=== PATIENT | male | born 1950 | race African-American/Black ===

== ENCOUNTER 2024-01-22 10:56 | Emergency (ER) | payer MEDICAID, OTHER ==
[~2024-01-22] VITALS: Ht 180.3 cm; Wt 113.0 kg
--- NOTE | 2024-01-22 11:43 | ED.PDOC ---
History of Present Illness HPI Comments 73-year-old male patient presents to the emergency room for medication refills. Patient was recently released from [facility] and does not have his medication. Patient was requesting refills of amlodipine, atorvastatin, Ultram and Lasix. Patient is normotensive in the emergency room today. Patient denies chest pain, headache, blurred vision or dizziness. Chief Complaint: High Blood Pressure Time Seen by MD: 11:30 Allergies: Coded Allergies: NO KNOWN ALLERGIES (Unverified , 01/22/24) Home Meds Active Scripts Furosemide (Lasix) 20 Mg Tb, 1 TAB PO DAILY PRN for 30 Days, #30 TAB 1 Refill Prov:[facility] 01/22/24 Celecoxib (Celebrex) 100 Mg Cap, 100 MG PO QHSP PRN for 30 Days, #30 CAP 0 Refills Prov:[facility] 01/22/24 Ibuprofen Micronized (Ibuprofen) 600 Mg Tab, 600 MG PO TID PRN for 30 Days, #90 TAB 0 Refills Prov:[facility] 01/22/24 Baclofen (Baclofen) 20 Mg Tab, 20 MG PO BID for 30 Days, #60 TAB 0 Refills Prov:[facility] 01/22/24 Atorvastatin Calcium (ATORVASTATIN CALCIUM) 80 Mg Tab, 80 MG PO DAILY for 30 Days, #30 TAB 0 Refills Prov:[facility] 01/22/24 Amlodipine Besylate (Amlodipine Besylate) 10 Mg Tab, 10 MG PO DAILY for 30 Days, #30 TAB 0 Refills Prov:[facility] 01/22/24 Mode of Arrival: Wheelchair Constitutional: denies: chills, diaphoresis, fatigue, fever, malaise, sweats, weakness, others EENTM: denies: blurred vision, double vision, ear bleeding, ear discharge, ear drainage, ear pain, ear ringing, eye pain, eye redness, hearing loss, mouth pain, mouth swelling, nasal discharge, nose bleeding, nose congestion, nose pain, photophobia, tearing, throat pain, throat swelling, voice changes, others Respiratory: denies: cough, hemoptysis, orthopnea, SOB at rest, shortness of breath, SOB with excertion, stridor, wheezing, others Cardiovascular: denies: chest pain, dizzy spells, diaphoresis, Dyspnea on exertion, edema, irregular heart beat, left arm pain, lightheadedness, palpitations, PND, syncope, others Gastrointestinal: denies: abdomen distended, abdominal pain, blood streaked bowels, constipated, diarrhea, dysphagia, difficulty swallowing, hematemesis, melena, nausea, poor appetite, poor fluid intake, rectal bleeding, rectal pain, vomiting, others Genitourinary: denies: burning, dysuria, flank pain, frequency, hematuria, incontinence, penile discharge, penile sore, pain, testicle pain, testicle swelling, urgency, others Neurological: denies: dizziness, fainting, headache, left sided numbness, left sided weakness, numbness, paresthesia, pre-existing deficit, right sided numbness, right sided weakness, seizure, speech problems, tingling, tremors, weakness, others Musculoskeletal: denies: back pain, gout, joint pain, joint swelling, muscle pain, muscle stiffness, neck pain, others Integumetry: denies: bruises, change in color, change in hair/nails, dryness, laceration, lesions, lumps, rash, wounds, others Allergic/Immunocompromised: denies: Difficulty Healing, Frequent Infections, Hives, Itching, others Hematologic/Lymphatic: denies: anemia, blood clots, easy bleeding, easy bruising, swollen glands, others Endocrine: denies: excessive hunger, excessive sweating, excessive thirst, excessive urination, flushing, intolerance to cold, intolerance to heat, unexplained weight gain, unexplained weight loss, others Psychiatric: denies: anxiety, bipolar disorder, depression, hopeless, panic disorder, schizophrenia, sleepless, suicidal, others Physical Exam General Appearance: No Apparent Distress, Normal HEENT: Normal ENT Inspection, Pharynx Normal, TMs Normal Neck: Full Range of Motion, Non-Tender, Normal, Normal Inspection Respiratory: Chest Non-Tender, Lungs Clear, No Accessory Muscle Use, No Respiratory Distress, Normal Breath Sounds Cardiovascular: No Edema, No JVD, No Murmur, No Gallop, Normal Peripheral Pulses, Regular Rate/Rhythm Breast Exam: Deferred Gastrointestinal: No Organomegaly, Non Tender, No Pulsatile Mass, Normal Bowel Sounds, Soft Genitalia: Deferred Pelvic: Deferred Rectal: Deferred Extremities: No calf tenderness, Normal capillary refill, Normal inspection, Normal range of motion, Non-tender, No pedal edema Musculoskeletal : Apperance: Normal Neurologic: Alert, turn machine operator II-XII nml as Tested, No Motor Deficits, Normal Affect, Normal Mood, No Sensory Deficits Cerebellar Function: Normal Reflexes: Normal Skin: Dry, Normal Color, Warm Lymphatic: No Adenopathy Was a procedure done? Was a procedure done?: No Differential Dx Considerations may include: Medication refills X-Ray, Labs, Meds, VS Vital Signs Date Time Temp Pulse Resp B/P (MAP) Pulse Ox O2 Delivery O2 Flow Rate FiO2 01/22/24 12:35 90 16 98 Room Air* 0 21 01/22/24 12:34 97.7 90 16 113/78 (90) 98 97.7 01/22/24 11:31 97.6 91 18 114/65 (81) 97 X-Ray, Labs, Meds, VS Comment Patient advised to follow up with the [facility] to obtain health insurance. Patient currently working. Patient reports that he has not seek medical care since his discharge from [facility] 1 month ago. Patient reports that he was in [facility] for 25 years. Patient and son brought in all medication bottles that needed refills. Patient advised to follow up with a [facility] to establish care. On re-evaluation patient has symptomatic improvement. Patient is stable for discharge at this time. All test results and diagnostic imaging have been interpreted. All diagnostic findings, discharge care, and education instruction provided to the patient. Follow-up with PCP in 2-3 days Patient verbalized understanding, discharge instructions and agrees to treatment plan Vital signs are stable Patient is ambulatory Patient advised of which symptoms necessitate a return visit to the emergency room. Patient to return emergency room for any new worsening symptoms. Patient is aware that the purpose of this visit is for an acute medical emergency requiring emergent stabilization. Chronic conditions, including malignancies have not been ruled out. Patient is instructed to follow up with PCP as directed for continued care and workup. If unable to arrange follow up, patient is to return to the emergency room for reassessment. Patient was given verbal and written discharge instructions and acknowledges understanding Time of 1ST Reevaluation: 11:00 Reevaluation 1ST: Unchanged Patient Education/Counseling: Diagnosis, Treatment, Prognosis Family Education/Counseling: Diagnosis, Treatment, Prognosis Departure 1 Departure Time of Disposition: 11:50 Impression: Primary Impression: Medication refill Additional Impression: Back pain Qualified Codes: M54.50 - Low back pain, unspecified; G89.29 - Other chronic pain Disposition: 01 HOME / SELF CARE / HOMELESS Condition: Stable e-Prescriptions Furosemide (Lasix) 20 Mg Tb 1 TAB PO DAILY PRN for 30 Days, #30 TAB 1 Refill Prov: [facility] 01/22/24 Celecoxib (Celebrex) 100 Mg Cap 100 MG PO QHSP PRN for 30 Days, #30 CAP 0 Refills Prov: [facility] 01/22/24 Ibuprofen Micronized (Ibuprofen) 600 Mg Tab 600 MG PO TID PRN for 30 Days, #90 TAB 0 Refills Prov: JERMAN [facility] 01/22/24 Baclofen (Baclofen) 20 Mg Tab 20 MG PO BID for 30 Days, #60 TAB 0 Refills Prov: [facility] 01/22/24 Atorvastatin Calcium (ATORVASTATIN CALCIUM) 80 Mg Tab 80 MG PO DAILY for 30 Days, #30 TAB 0 Refills Prov: [facility] 01/22/24 Amlodipine Besylate (Amlodipine Besylate) 10 Mg Tab 10 MG PO DAILY for 30 Days, #30 TAB 0 Refills Prov: [facility] 01/22/24 Discharged With: Self Critical Care Note Critical Care Time?: No Stability Stability form required: No Heart Score Heart Score: Heart Score Response (Comments) Value History N/A 0 EKG N/A 0 Age N/A 0 Risk Factors N/A 0 Troponin N/A 0 Total 0 [facility] Jan 22, 2024 11:43
[2024-01-22] MEDS ORDERED: BACL20TA PO (12:14)
[2024-01-22] MEDS ORDERED: IBUP1TAB5 PO (12:14)
[2024-01-22] MEDS ORDERED: CELE100C82 PO (12:14)
[2024-01-22] MEDS ORDERED: ATOR-47 PO (12:14)
[2024-01-22] MEDS ORDERED: AMLO1TAB23 PO (12:14)
[2024-01-22] MEDS ORDERED: FURO1TAB33 PO (12:14)
[2024-01-22 12:34] VITALS: BP 113/78; TEMP 97.7
[2024-01-22 12:35] VITALS: PULSE 90; RESP 16; O2SAT 98
== END 2024-01-22 12:45 | disposition home or self-care (01) ==
LOC: EDBD 10:56 → ER 10:56
DX: M54.50 Low back pain, unspecified (principal); Z76.0 Encounter for issue of repeat prescription; Z79.899 Other long term (current) drug therapy